=== PATIENT | male | born 1965 | race Hispanic/Latino ===

== ENCOUNTER 2016-12-13 18:18 | Emergency (ER) | payer OTHER | END 2016-12-13 18:53 | disposition home or self-care (01) | LOC: MADERS 18:18 | DX: Z77.098 Contact with and (suspected) exposure to other hazardous, chiefly nonmedicinal, chemicals (principal); I10 Essential (primary) hypertension; F32.9 Major depressive disorder, single episode, unspecified; F17.210 Nicotine dependence, cigarettes, uncomplicated | CPT/HCPCS: 99283 ==

== ENCOUNTER 2017-05-12 07:57 | Outpatient (CLI) | payer OTHER ==
--- NOTE | 2017-05-12 10:59 | ULT ---
SCROTAL ULTRASOUND: INDICATION: Left testicular swelling. COMPARISON: Prior scrotal ultrasound dated 12/03/09 and 11/21/13. FINDINGS: The right testicle measures 3.1 x 2.7 x 2.1 cm. There is normal vascular flow to the right testicle . There is heterogeneous echotexture to the right testicle which is stable. The visualized epididy mis appears within normal limits. The left-sided testicle measures 4.0 x 3.3 x 2.9 cm. There is vascular flow to the left testicle. There is an increasing moderate left hydrocele. Left epididymis appears within normal limits. IMPRESSION: 1. Enlarging moderate left hydrocele. 2. No intratesticular mass or torsion demonstrated. POS: [facility]
== END 2017-05-12 07:58 | disposition home or self-care (01) ==
LOC: MADULT 07:57
PROVIDERS: ATTEND Family Medicine
DX: N50.89 Other specified disorders of the male genital organs (principal); N43.3 Hydrocele, unspecified
CPT/HCPCS: 76870

== ENCOUNTER 2017-12-29 15:52 | Outpatient (CLI) | payer OTHER ==
[2017-12-29 17:04] LABS: Anion Gap 18 mmol/L (10-20); BUN (Urea Nitrogen) 11 mg/dL (8.9-20.6); Calc. Creatinine Clearance 0 mL/min (70-130); Calcium 8.8 mg/dL (7.8-10.44); Carbon Dioxide 23 mmol/L (22-29); Cardiac Risk 5.7 (Less than 4.5); Chloride 104 mmol/L (98-107); Cholesterol 189 mg/dl (< 200 Desired); Estimated GFR-MDRD 71; Glucose 96 mg/dL (70-105); HDL Cholesterol 33 mg/dL (>60 Neg Risk); LDL Cholesterol, Calculated 85 mg/dL; Potassium 4.5 mmol/L (3.5-5.1); Sodium 140 mmol/L (136-145); Triglycerides 357 mg/dL (Less than 150)
[2017-12-29 17:41] LABS: #Basophils 0.1 thou/uL (0.0-0.2); #Eosinphils 0.2 thou/uL (0.0-0.7); #Lymphocytes 1.8 thou/uL (1.20-3.40); #Monocytes 0.5 thou/uL (0.11-0.59); %Basophils 1.2 % (0.0-1.0); %Eosinophils 2.5 % (0.0-10.0); %Lymphocytes 23.6 % (21.0-51.0); %Monocytes 6.4 % (0.0-10.0); %Neutrophils 66.4 % (42.0-75.0); Giant Platelets SLIGHT; Hemoglobin 14.5 g/dL (14.0-18.0); Large Platelets MODERATE; MDiff Complete? YES; Mean Corpuscular HGB CONC 32.2 g/dL (32.0-36.0); Mean Corpuscular Hemoglobin 27.2 pg (27.0-31.0); Mean Corpuscular Volume 84.6 fl (80.0-94.0); Mean Platelet Volume 12.4 fL (7.4-10.4); Platelet Count 154 thou/uL (130-400); RBC Distribution Width 12.8 % (11.5-14.5); Red Blood Cell (RBC) Count 5.32 mill/uL (4.70-6.10); White Blood Cell (WBC) Count 7.6 thou/uL (4.8-10.8)
== END 2017-12-29 15:53 | disposition home or self-care (01) ==
LOC: MADLABBHPM 15:52
PROVIDERS: ATTEND Family Medicine
DX: Z00.00 Encounter for general adult medical examination without abnormal findings (principal)
CPT/HCPCS: 36415; 80048; 80061; 85025

== ENCOUNTER 2018-05-25 17:43 | Emergency (ER) | payer OTHER | END 2018-05-25 19:00 | disposition home or self-care (01) | LOC: MADERS 17:43 | DX: K64.8 Other hemorrhoids (principal); I10 Essential (primary) hypertension; K21.9 Gastro-esophageal reflux disease without esophagitis; F32.9 Major depressive disorder, single episode, unspecified; F17.210 Nicotine dependence, cigarettes, uncomplicated; Z79.899 Other long term (current) drug therapy | CPT/HCPCS: 99283 ==

== ENCOUNTER 2018-12-12 13:24 | Emergency (ER) | payer OTHER | END 2018-12-12 14:30 | disposition home or self-care (01) | LOC: MADERS 13:24 | DX: L40.0 Psoriasis vulgaris (principal) | CPT/HCPCS: 99282 ==

== ENCOUNTER 2020-09-14 07:21 | Emergency (ER) | payer OTHER ==
[2020-09-14] MEDS ORDERED: Albuterol 200 PUFF (6.7GM INHALER) ONE (08:16)
--- NOTE | 2020-09-14 09:08 | RAD ---
PORTABLE CHEST: Date: 09/14/2020 PROVIDED CLINICAL HISTORY: Shortness of breath and hypertension. FINDINGS: Comparison with 03/13/2014. Cardiac and mediastinal silhouette is within normal limits. No focal consolidation, pleural fluid, or pneumothorax apparent. IMPRESSION: No evidence for an acute cardiopulmonary process. POS: [facility]
== END 2020-09-14 08:25 | disposition home or self-care (01) ==
LOC: MADERS 07:21
DX: I10 Essential (primary) hypertension (principal); K21.9 Gastro-esophageal reflux disease without esophagitis; Z79.899 Other long term (current) drug therapy
CPT/HCPCS: 71045

== ENCOUNTER 2020-09-20 13:48 | Emergency (ER) | payer OTHER ==
--- NOTE | 2020-09-20 15:03 | RAD ---
RADIOGRAPH CHEST 2 VIEWS: DATE: 09/20/2020 HISTORY: 55-year-old male with dyspnea FINDINGS: There is no airspace density, pulmonary edema, pleural effusion, pneumothorax, or cardiomegaly. IMPRESSION: No acute cardiopulmonary findings.
== END 2020-09-20 15:20 | disposition home or self-care (01) ==
LOC: MADERS 13:48
DX: R06.00 Dyspnea, unspecified (principal); T45.0X5A Adverse effect of antiallergic and antiemetic drugs, initial encounter; I10 Essential (primary) hypertension; K21.9 Gastro-esophageal reflux disease without esophagitis; Z79.899 Other long term (current) drug therapy
CPT/HCPCS: 71046; 93005

== ENCOUNTER 2020-10-27 18:45 | Emergency (ER) | payer OTHER ==
[2020-10-27 19:23] LABS: ALT (SGPT) 28 U/L (8-55); AST (SGOT) 21 U/L (5-34); Acetaminophen Less than 6.0 mcg/mL (10.0-30.0); Albumin 4.3 g/dL (3.5-5.0); Alcohol Less than 10 mg/dL (Less than 10); Alkaline Phosphatase 121 U/L (40-110); Anion Gap 14 mmol/L (10-20); BUN (Urea Nitrogen) 4 mg/dL (8.4-25.7); Bilirubin, Total 0.9 mg/dL (0.2-1.2); Calc. Creatinine Clearance 0 mL/min (70-130); Calcium 8.9 mg/dL (7.8-10.44); Carbon Dioxide 25 mmol/L (22-29); Chloride 107 mmol/L (98-107); Globulin 2.6 g/dL (2.4-3.5); Glucose 113 mg/dL (70-105); Lipase 27 U/L (8-78); Potassium 3.5 mmol/L (3.5-5.1); Protein, Total 6.9 g/dL (6.0-8.3); Salicylate Less than 8.0 mg/dL (15.0-30.0); Sodium 142 mmol/L (136-145)
[2020-10-27 19:37] LABS: Hemoglobin 15.7 g/dL (14.0-18.0); Mean Corpuscular HGB CONC 32.7 g/dL (32.0-36.0); Mean Corpuscular Hemoglobin 27.6 pg (27.0-31.0); Mean Corpuscular Volume 84.6 fL (78.0-98.0); Mean Platelet Volume 12.9 fL (7.4-10.4); Platelet Count 179 thou/uL (130-400); RBC Distribution Width 11.5 % (11.5-14.5); Red Blood Cell (RBC) Count 5.68 mill/uL (4.70-6.10); White Blood Cell (WBC) Count 7.9 thou/uL (4.8-10.8)
[2020-10-27 19:47] LABS: Bilirubin Negative (Negative); Blood, Urine Negative (Negative); Clarity Clear (Clear); Glucose, Urine (Dipstick) Negative (Negative); Ketone, Urine Negative (Negative); Leukocyte Negative (Negative); Nitrite Negative (Negative); Protein, Urine (Dipstick) Negative (Neg-Trace); Urobilinogen 0.2 mg/dL (Less than 2); pH, Urine 6.5 (5.0-9.0)
[2020-10-27 19:48] LABS: Specific Gravity, Urine 1.007 (1.002-1.036)
[2020-10-27 19:55] LABS: Amphetamine Not Detected (NotDetected); Barbiturates Screen Not Detected (NotDetected); Benzodiazepine Screen Not Detected (NotDetected); Cocaine Metabolite Screen Not Detected (NotDetected); Medtox Control Line Valid? VALID (VALID); Methadone Not Detected (NotDetected); Methamphetamine Not Detected (NotDetected); Opiate Screen Not Detected (NotDetected); Oxycodone Screen Not Detected (NotDetected); Phencyclidine (PCP) Not Detected (NotDetected); THC/Cannabinoid Screen Not Detected (NotDetected); Tricyclic Screen Not Detected (NotDetected)
[2020-10-27 19:57] LABS: #Basophils 0.1 thou/uL (0.0-0.2); #Eosinphils 0.1 thou/uL (0.0-0.7); #Monocytes 0.8 thou/uL (0.11-0.59); %Basophils 1.4 % (0.0-1.0); %Eosinophils 1.8 % (0.0-10.0); %Lymphocytes 24.1 % (21.0-51.0); %Monocytes 9.5 % (0.0-10.0); %Neutrophils 63.2 % (42.0-75.0)
[2020-10-27] MEDS ORDERED: Aspirin Chewable 81 MG TAB ONE (19:57)
[2020-10-27 20:06] LABS: MDiff Complete? YES
[2020-10-27 20:07] LABS: Band 2 % (5-11); Eosinophils 2 % (0-10); Lymphocytes 24 % (21-51); Monocytes 6 % (0-10); Neutrophil 63 % (42-75); Reactive Lymphocytes 2 % (0-10)
[2020-10-27 20:08] LABS: Platelet Morphology Comment Appears Adequate; RBC Morphology Normal
== END 2020-10-27 20:36 | disposition home or self-care (01) ==
LOC: MADERS 18:45
DX: F41.0 Panic disorder [episodic paroxysmal anxiety] (principal); R63.4 Abnormal weight loss; K21.9 Gastro-esophageal reflux disease without esophagitis; I10 Essential (primary) hypertension; Z79.899 Other long term (current) drug therapy
CPT/HCPCS: 71045; 80053; 80306; 80307; 81003; 83605; 83690; 84443; 84484; 85025; 85379; 93005; 94760

== ENCOUNTER 2021-06-15 13:02 | Outpatient (CLI) | payer OTHER | END 2021-06-15 13:03 | disposition home or self-care (01) | LOC: MADRAD 13:02 | PROVIDERS: ATTEND Family Medicine | DX: J18.9 Pneumonia, unspecified organism (principal) | CPT/HCPCS: 71046 ==

== ENCOUNTER 2022-01-04 16:23 | Outpatient (CLI) | payer OTHER | END 2022-01-04 16:24 | disposition home or self-care (01) | LOC: MADEKG 16:23 | PROVIDERS: ATTEND Family Medicine | DX: R42 Dizziness and giddiness (principal) | CPT/HCPCS: 93005; 93010 ==

== ENCOUNTER 2022-02-07 08:36 | Emergency (ER) | payer OTHER | END 2022-02-07 09:28 | disposition home or self-care (01) | LOC: MADERS 08:36 | DX: U07.1 COVID-19 (principal); J32.9 Chronic sinusitis, unspecified; K21.9 Gastro-esophageal reflux disease without esophagitis; I10 Essential (primary) hypertension; Z79.899 Other long term (current) drug therapy | CPT/HCPCS: 87804; 99284; U0003; U0005 ==

== ENCOUNTER 2022-02-20 03:34 | Emergency (ER) | payer OTHER ==
[2022-02-20] MEDS ORDERED: Ondansetron ODT 4 MG TAB ONE (03:57)
[2022-02-20] MEDS ORDERED: Dicyclomine 20 MG/2 ML VIAL ONE (04:09)
== END 2022-02-20 04:55 | disposition home or self-care (01) ==
LOC: MADERS 03:34
DX: A08.4 Viral intestinal infection, unspecified (principal); K21.9 Gastro-esophageal reflux disease without esophagitis; I10 Essential (primary) hypertension; J45.909 Unspecified asthma, uncomplicated; F17.210 Nicotine dependence, cigarettes, uncomplicated; Z79.899 Other long term (current) drug therapy; Z79.51 Long term (current) use of inhaled steroids
CPT/HCPCS: 96372; 99283; J0500; Q0162

== ENCOUNTER 2022-05-25 10:47 | Outpatient (CLI) | payer OTHER | END 2022-05-25 10:48 | disposition home or self-care (01) | LOC: MADLAB 10:47 | PROVIDERS: ATTEND Family Medicine | DX: N50.811 Right testicular pain (principal); N50.89 Other specified disorders of the male genital organs | CPT/HCPCS: 76870; 93976 ==

== ENCOUNTER 2022-12-19 15:29 | Emergency (ER) | payer OTHER ==
[~2022-12-19 15:29] MED LIST: Iopamidol 370 76% 100 ML VIAL ONE
[2022-12-19 16:31] LABS: ALT (SGPT) 18 U/L (8-55); AST (SGOT) 19 U/L (5-34); Albumin 4.2 g/dL (3.5-5.0); Alkaline Phosphatase 79 U/L (40-110); Anion Gap 13 mmol/L (10-20); BUN (Urea Nitrogen) 12 mg/dL (8.4-25.7); Bilirubin, Total 0.7 mg/dL (0.2-1.2); Calc. Creatinine Clearance 0 mL/min (70-130); Calcium 9.2 mg/dL (7.8-10.44); Carbon Dioxide 23 mmol/L (22-29); Chloride 104 mmol/L (98-107); Estimated GFR 87; Glucose 103 mg/dL (70-105); Lipase 29 U/L (8-78); Potassium 3.9 mmol/L (3.5-5.1); Protein, Total 7.2 g/dL (6.0-8.3); Sodium 136 mmol/L (136-145)
[2022-12-19 16:32] LABS: #Basophils 0.1 thou/uL (0.0-0.2); #Eosinphils 0.4 thou/uL (0.0-0.7); #Lymphocytes 1.8 thou/uL (1.20-3.40); #Monocytes 0.6 thou/uL (0.11-0.59); #Neutrophils 4.9 thou/uL (1.40-6.50); %Eosinophils 4.7 % (0.0-10.0); %Lymphocytes 23.6 % (21.0-51.0); %Monocytes 7.3 % (0.0-10.0); %Neutrophils 63.4 % (42.0-75.0); Hemoglobin 15.1 g/dL (14.0-18.0); Mean Corpuscular HGB CONC 33.5 g/dL (32.0-36.0); Mean Corpuscular Hemoglobin 29.2 pg (27.0-31.0); Mean Corpuscular Volume 87.1 fl (78.0-98.0); Mean Platelet Volume 16.7 fL (7.4-10.4); Platelet Count 161 10x3/uL (130-400); Platelet Morphology Comment Appears Adequate; RBC Distribution Width 12.7 % (11.5-14.5); RBC Morphology Normal; Red Blood Cell (RBC) Count 5.16 mill/uL (4.70-6.10); White Blood Cell (WBC) Count 7.7 10x3/uL (4.8-10.8)
[2022-12-19 17:35] LABS: Bilirubin Negative (Negative); Blood, Urine Negative (Negative); Clarity Clear (Clear); Glucose, Urine (Dipstick) Negative (Negative); Ketone, Urine Negative (Negative); Leukocyte Negative (Negative); Nitrite Negative (Negative); Protein, Urine (Dipstick) Negative (Neg-Trace); Urobilinogen 0.2 mg/dL (Less than 2)
== END 2022-12-19 18:00 | disposition home or self-care (01) ==
LOC: MADERS 15:29
DX: K42.9 Umbilical hernia without obstruction or gangrene (principal); K21.9 Gastro-esophageal reflux disease without esophagitis; I10 Essential (primary) hypertension; F17.210 Nicotine dependence, cigarettes, uncomplicated
CPT/HCPCS: 74177; 80053; 81003; 83690; 83735; 85025; 87086; Q9967

== ENCOUNTER 2023-03-31 14:15 | Emergency (ER) | payer OTHER ==
[2023-03-31] MEDS ORDERED: Acetaminophen 325 MG TAB ONE (14:56)
[2023-03-31] MEDS ORDERED: Ibuprofen 800 MG TAB ONE (14:56)
[2023-03-31 15:03] LABS: Bilirubin Small (Negative); Blood, Urine Negative (Negative); Glucose, Urine (Dipstick) Negative (Negative); Ketone, Urine Trace mg/dL (Negative); Leukocyte Negative (Negative); Nitrite Negative (Negative); Protein, Urine (Dipstick) Negative (Neg-Trace); pH, Urine 5.5 (5.0-9.0)
[2023-03-31 15:04] LABS: Clarity Clear (Clear); Specific Gravity, Urine 1.029 (1.002-1.036)
[2023-03-31 15:07] LABS: ALT (SGPT) 16 U/L (8-55); AST (SGOT) 16 U/L (5-34); Albumin 4.3 g/dL (3.5-5.0); Alkaline Phosphatase 76 U/L (40-110); Anion Gap 16 mmol/L (10-20); BUN (Urea Nitrogen) 12 mg/dL (8.4-25.7); Bilirubin, Total 1.2 mg/dL (0.2-1.2); Calc. Creatinine Clearance 0 mL/min (70-130); Carbon Dioxide 21 mmol/L (22-29); Chloride 108 mmol/L (98-107); Estimated GFR 92; Globulin 2.8 g/dL (2.4-3.5); Glucose 101 mg/dL (70-105); Magnesium 1.9 mg/dL (1.6-2.6); Potassium 3.9 mmol/L (3.5-5.1); Protein, Total 7.1 g/dL (6.0-8.3); Sodium 141 mmol/L (136-145)
[2023-03-31 15:16] LABS: RBC/HPF None Seen HPF (0-3)
[2023-03-31 15:17] LABS: Bacteria/HPF Rare-Few HPF (None Seen); CAUTI Indications for Culture Pelvic or flank pain; Calcium Oxalate Crystals 3+ HPF (None Seen); Mucous/LPF 3+ LPF (<2+); Squamous Epithelial 0-3 HPF (0-3); Urine Culture Reflex No No; WBC/HPF 0-3 HPF (0-3)
[2023-03-31 15:23] LABS: Band 1 % (5-11); Eosinophils 2 % (0-10); Hematocrit 43.7 % (42.0-52.0); Hemoglobin 14.3 g/dL (14.0-18.0); Large Platelets SLIGHT (None Seen); Lymphocytes 14 % (21-51); MDiff Complete? YES; Mean Corpuscular HGB CONC 32.8 g/dL (32.0-36.0); Mean Corpuscular Volume 88.4 fl (78.0-98.0); Mean Platelet Volume 16.6 fL (7.4-10.4); Monocytes 3 % (0-10); Neutrophil 59 % (42-75); Platelet Adequacy Comment Appears Adequate; Platelet Count 150 10x3/uL (130-400); RBC Distribution Width 12.9 % (11.5-14.5); Reactive Lymphocytes 21 % (0-10); Red Blood Cell (RBC) Count 4.94 mill/uL (4.70-6.10); White Blood Cell (WBC) Count 6.7 10x3/uL (4.8-10.8)
[2023-04-01 03:40] LABS: Chlam.trachomatis by PCR,Urine Not Detected (NotDetected); GC N.gonorrhoeae PCR,UrineVOID Not Detected (NotDetected)
== END 2023-03-31 16:45 | disposition short-term general hospital (02) ==
LOC: MADERS 14:15
DX: R00.2 Palpitations (principal); I45.81 Long QT syndrome; K21.9 Gastro-esophageal reflux disease without esophagitis; I10 Essential (primary) hypertension; F17.210 Nicotine dependence, cigarettes, uncomplicated; Z79.899 Other long term (current) drug therapy
CPT/HCPCS: 36415; 71045; 74176; 80053; 81001; 83735; 84443; 85025; 87491; 87591; 93005

== ENCOUNTER 2023-08-23 13:36 | Emergency (ER) | payer OTHER ==
[2023-08-23 14:21] LABS: Bilirubin Negative (Negative); Blood, Urine Negative (Negative); Clarity Clear (Clear); Glucose, Urine (Dipstick) Negative (Negative); Ketone, Urine Negative (Negative); Leukocyte Negative (Negative); Nitrite Negative (Negative); Protein, Urine (Dipstick) Negative (Neg-Trace); Urobilinogen 0.2 mg/dL (Less than 2)
[2023-08-23 14:25] LABS: Bacteria/HPF None Seen HPF (None Seen); CAUTI Indications for Culture Pelvic or flank pain; RBC/HPF None Seen HPF (0-3); Squamous Epithelial 0-3 HPF (0-3); WBC/HPF 0-3 HPF (0-3)
[2023-08-23 14:26] LABS: Urine Culture Reflex No No
== END 2023-08-23 14:41 | disposition home or self-care (01) ==
LOC: MADERS 13:36
DX: N50.811 Right testicular pain (principal); F17.210 Nicotine dependence, cigarettes, uncomplicated; I10 Essential (primary) hypertension
CPT/HCPCS: 81001; 99284

== ENCOUNTER 2024-06-20 16:36 | Emergency (ER) | payer OTHER ==
[2024-06-20] MEDS ORDERED: methylPREDNISolone Sod Succ/PF 125 MG/2 ML VIAL ONE (17:16)
== END 2024-06-20 17:35 | disposition home or self-care (01) ==
LOC: MADERS 16:36
DX: L40.0 Psoriasis vulgaris (principal); I10 Essential (primary) hypertension; F17.200 Nicotine dependence, unspecified, uncomplicated
CPT/HCPCS: 96372; 99282; J2919

== ENCOUNTER 2025-05-28 14:39 | Outpatient (CLI) | payer OTHER | END 2025-05-28 14:40 | disposition home or self-care (01) | LOC: MADRAD 14:39 | DX: M54.50 Low back pain, unspecified (principal); M40.56 Lordosis, unspecified, lumbar region; M47.816 Spondylosis without myelopathy or radiculopathy, lumbar region; M47.817 Spondylosis without myelopathy or radiculopathy, lumbosacral region | CPT/HCPCS: 72100 ==

== ENCOUNTER 2025-06-10 12:41 | Emergency (ER) | payer MEDICAID, OTHER | END 2025-06-10 13:52 | disposition home or self-care (01) | LOC: MADERS 12:41 | DX: M54.6 Pain in thoracic spine (principal); I10 Essential (primary) hypertension; Z79.899 Other long term (current) drug therapy | CPT/HCPCS: 71046 ==